=== PATIENT | male | born 1990 | race Caucasian/White ===

== ENCOUNTER 2022-03-08 11:45 | Emergency (ER) | payer BC, MEDICAID ==
[~2022-03-08] VITALS: Ht 177.8 cm; Wt 90.7 kg
[2022-03-08 11:45] VITALS: BP_SYST 140
[~2022-03-08 11:45] MED LIST: HYDR-3917 PO; IBUP-1969 PO
--- NOTE | 2022-03-08 11:45 | NUR ---
BROUGHT BACK TO [facility] AND TRIAGED, REPORT GIVEN TO DANUTA
--- NOTE | 2022-03-08 12:30 | NUR ---
Patient is complaining of pain he feels he is a bones move around especially in nighttime he was seen here early part of February with a trimalleolar fracture he would like his a splint to be done again he states that he has had trouble setting up a orthopedic referral
--- NOTE | 2022-03-08 17:57 | NUR ---
Patient given written and verbal discharge instructions and verbalizes understanding. ER MD discussed with patient the results and treatment provided. Patient in stable condition. ID arm band removed. Pt given instructions to orthopedist. Opportunity for questions provided and answered. Medication side effect fact sheet provided.
[2022-03-08 17:58] VITALS: BP_SYST 140
== END 2022-03-08 17:57 | disposition home or self-care (01) ==
LOC: SED 11:45
DX: S82.852A Displaced trimalleolar fracture of left lower leg, initial encounter for closed fracture (principal); Z79.899 Other long term (current) drug therapy; X58.XXXA Exposure to other specified factors, initial encounter; Y93.89 Activity, other specified; Y92.89 Other specified places as the place of occurrence of the external cause; Y99.8 Other external cause status
CPT/HCPCS: 99283